=== PATIENT | male | born 2000 | race Caucasian/White ===

== ENCOUNTER 2020-06-02 00:23 | Emergency (ER) | payer SELFPAY ==
[~2020-06-02] VITALS: Ht 170.2 cm; Wt 59.0 kg
[2020-06-02 00:30] VITALS: BP_SYST 121
--- NOTE | 2020-06-02 00:30 | NUR ---
Patient to ER bed HALLWAY to gown for evaluation. Side rails up.
--- NOTE | 2020-06-02 00:31 | NUR ---
ER Dr. MCDOWELL at bedside examining patient.
--- NOTE | 2020-06-02 00:32 | NUR ---
PT AAO AND IN CUSTODY OF [facility]. PT DENIES HAVING ANY COMPLIANTS AND IS HERE FOR MEDICAL CLEARANCE FOR OKAY TO BOOK.
[2020-06-02 00:54] VITALS: BP_SYST 121
--- NOTE | 2020-06-02 00:55 | NUR ---
Patient given written and verbal discharge instructions and verbalizes understanding. DR. JULY BERMAN MD discussed with patient the results and treatment provided. Patient in stable condition. ID arm band removed. Patient educated on pain management and to follow up with PMD. Pain Scale 0/10. Opportunity for questions provided and answered.
== END 2020-06-02 00:55 ==
LOC: SED 00:23
DX: Z02.89 Encounter for other administrative examinations (principal)
CPT/HCPCS: 99283